=== PATIENT | female | born 1965 | race Caucasian/White ===

== ENCOUNTER → 2019-03-01 | Outpatient (CLI) | payer BC ==
[~2019-03-01] MED LIST: AMITRIPTYLINE H50 M1 PO; ASPIRIN 81M81 MG/TA2 PO; HYGROTON25 MG PO; TENORMIN 2525 MG/TAB PO; ZOLOFT 100MG100 MG PO
== END ==
LOC: COL.VAS 14:42
DX: Z68.41 Body mass index [BMI] 40.0-44.9, adult (principal)

== ENCOUNTER → 2021-03-26 | Outpatient (CLI) | payer BC | LOC: COL.RAD 14:18 | DX: I31.3 Pericardial effusion (noninflammatory) (principal); J90 Pleural effusion, not elsewhere classified | CPT/HCPCS: Q9967 ==

== ENCOUNTER 2024-06-15 07:42 | Day surgery (SDC) | payer BC ==
[~2024-06-15] VITALS: Ht 165.1 cm; Wt 111.3 kg
[~2024-06-15 07:42] MED LIST changes: +LR 1,000 ML IV SCH; +Ondansetron 4 MG/2 ML VIAL IV PRN
[2024-06-15 08:49] VITALS: BP 133/85; PULSE 83; TEMP 97.5
[2024-06-15] MEDS ORDERED: ASPIRIN E.C. 8181 MG PO (09:19)
[2024-06-15] MEDS ORDERED: NEURONTIN400 MG/CAP PO (09:19)
[2024-06-15] MEDS ORDERED: ZESTRIL 5MG5 MG PO (09:21)
[2024-06-15] MEDS ORDERED: PROTONIX 40MG T40 MG PO (09:21)
[2024-06-15] MEDS ORDERED: ZOLOFT 100MG100 MG PO (09:22)
[2024-06-15] MEDS ORDERED: CARDIZEM CD 18180 MG PO (09:23)
[2024-06-15] MEDS ORDERED: K-DUR20 MEQ PO (09:24)
[2024-06-15] MEDS ORDERED: FENOGLIDE120 MG PO (09:24)
[2024-06-15] MEDS ORDERED: HYGROTON 2525 MG/TAB PO (09:25)
[2024-06-15] MEDS ORDERED: MASON NATURAL2000 IU PO (09:26)
[2024-06-15] MEDS ORDERED: MULTI VITAMINS1 TAB PO (09:26)
[2024-06-15] MEDS ORDERED: AMITRIPTYLINE H25 M1 PO (09:27)
[2024-06-15] MEDS ORDERED: NEURONTIN600 MG/TAB PO (09:28)
[2024-06-15] MEDS ORDERED: XARELTO20 MG PO (09:28)
[2024-06-15] MEDS ORDERED: LIPITOR 10MG10 MG PO (09:29)
[2024-06-15] MEDS ORDERED: MIRAPEX 0.0.125 MG/T PO (09:29)
[2024-06-15] MEDS ORDERED: MELATONIN ER10 MG PO (09:30)
[2024-06-15] MEDS ORDERED: MAGNESIUM GLUC500 MG PO (09:31)
[2024-06-15] MEDS ORDERED: IRON TABLETS325 MG PO (09:31)
[2024-06-15] MEDS ORDERED: VITAMIN C500 MG PO (09:31)
[2024-06-15] MEDS ORDERED: FOLIC ACID 11 MG/TA1 PO (09:32)
[2024-06-15] MEDS ORDERED: Lidocaine PF 2% (20 MG/ML) 5 ML VIAL ONE (09:49)
[2024-06-15] MEDS ORDERED: fentaNYL 50 MCG/ML 2 ML VIAL ONE (09:50)
[2024-06-15 10:45] VITALS: BP 125/70; PULSE 66; TEMP 97.1
[2024-06-15 11:00] VITALS: BP 100/65; PULSE 64
[2024-06-15 11:10] VITALS: BP 111/69; PULSE 68
--- NOTE | 2024-06-15 11:18 | NUR ---
1045 RETURNS TO ROOM 4 PER CART. AWAKE, ALERT, RESP UNLABORED. AMBULATES TO RECLINER WITH STANDBY ASSIST. DENIES NAUSEA OR ABD PAIN. VITAL SIGNS OBTAINED. CALL LIGHT AT SIDE. IN ROOM. 1100 TOLERATES PO JUICE AND PUDDING WITHOUT NAUSEA 1105 DISCHARGE INSTRUCTIONS REVIEWED. PATIENT VERBALIZES UNDERSTANDING. COPY PROVIDED IN DISCHARGE FOLDER. PATIENT ADMITS TO VISITING WITH DR STEPHEN IN PROCEDURE [place] FOLLOWING PROCEDURE 1110 DRESSES SELF
== END 2024-06-15 10:00 | disposition home or self-care (01) ==
LOC: SDCO 07:42
DX: Z12.11 Encounter for screening for malignant neoplasm of colon (principal); I48.0 Paroxysmal atrial fibrillation; M06.1 Adult-onset Still's disease; K57.30 Diverticulosis of large intestine without perforation or abscess without bleeding; D75.838 Other thrombocytosis; N18.31 Chronic kidney disease, stage 3a; E78.1 Pure hyperglyceridemia; E66.01 Morbid (severe) obesity due to excess calories; G43.009 Migraine without aura, not intractable, without status migrainosus; K21.9 Gastro-esophageal reflux disease without esophagitis; I12.9 Hypertensive chronic kidney disease with stage 1 through stage 4 chronic kidney disease, or unspecified chronic kidney disease; L98.8 Other specified disorders of the skin and subcutaneous tissue; G89.29 Other chronic pain; G25.81 Restless legs syndrome; E55.9 Vitamin D deficiency, unspecified; D58.0 Hereditary spherocytosis; F33.1 Major depressive disorder, recurrent, moderate; F51.01 Primary insomnia; Z90.81 Acquired absence of spleen; Z79.01 Long term (current) use of anticoagulants; Z79.82 Long term (current) use of aspirin; Z68.41 Body mass index [BMI] 40.0-44.9, adult
CPT/HCPCS: J2704; J3010; J7120